=== PATIENT | female | born 1975 | race Hispanic/Latino ===

== ENCOUNTER 2017-04-19 10:54 | Outpatient (CLI) | payer OTHER ==
--- NOTE | 2017-04-19 14:55 | ULT ---
ULTRASOUND ABDOMEN: HISTORY: Epigastric, right upper quadrant, and right lower quadrant pain. COMPARISON: None. TECHNIQUE: Real-time Smith-scale color Doppler, and spectral analysis of the abdomen is performed with a curvilin ear transducer. FINDINGS: The aorta appears normal. The pancreatic parenchyma is difficult to evaluate. The liver measures 17.6 cm in length. The spleen measures 11.4 cm. Hepatic echotexture is increased and mildly coarsened. The main portal vein has patent antegrade maynor w. Gallbladder wall thickness is 2 mm. Sonographic Rueda sign is negative. Common bile duct measures 3 mm. The right kidney measures 10.7 x 5.2 x 4.7 cm without mass, hydronephrosis, or abnormal calcification s. The left kidney measures 8.7 x 3.7 x 3.8 cm without mass, hydronephrosis, or abnormal calcifications. The spleen measures 11.4 cm in length. IMPRESSION: 1. Increased hepatic echotexture, which can be seen with hepatocellular disease and steatosis. 2. No cholelithiasis or evidence of cholecystitis. POS: [facility]
== END 2017-04-19 10:55 | disposition home or self-care (01) ==
LOC: ULT 10:54
PROVIDERS: ATTEND Internal Medicine
DX: K29.70 Gastritis, unspecified, without bleeding (principal); K59.00 Constipation, unspecified; R10.11 Right upper quadrant pain; K76.0 Fatty (change of) liver, not elsewhere classified
CPT/HCPCS: 76700

== ENCOUNTER 2024-06-14 19:39 | Emergency (ER) | payer BC, OTHER ==
[2024-06-14] MEDS ORDERED: fentaNYL 50 mcg/mL 1 mL Vial ONE (20:07)
[2024-06-14] MEDS ORDERED: Ondansetron PF 4 MG/2 ML Vial ONE (20:39)
[2024-06-14] MEDS ORDERED: Ibuprofen 200 MG TAB ONE (21:03)
== END 2024-06-14 21:09 | disposition home or self-care (01) ==
LOC: ERS 19:39
DX: S09.90XA Unspecified injury of head, initial encounter (principal); V49.9XXA Car occupant (driver) (passenger) injured in unspecified traffic accident, initial encounter
CPT/HCPCS: 70450; 72125; 96374; 96375; J2405; J3010